=== PATIENT | male | born 1995 | race Caucasian/White ===

== ENCOUNTER 2016-10-29 21:04 | Emergency (ER) | payer OTHER ==
--- NOTE | 2016-10-29 21:48 | ED ---
Psych HPI - General Source: patient Mode of arrival: ambulatory <Brannon Gardner - Last Filed: 10/30/16 01:17> <Clayton Blanchard - Last Filed: 10/30/16 04:42> - General Chief Complaint: Psychiatric Symptoms Stated Complaint: petition Time Seen by Provider: 10/29/16 21:37 - History of Present Illness Initial Comments: Patient is a 21-year-old male presenting with suicidal ideation. Patient states he's been with his boyfriend for the past 6 months and makes him feel depressed. Patient states he currently broke up with his boyfriend. Patient intermittently will try to seek help with a counselor but never follows through with appointments. He is not on medication at this time. Patient states his mom has breast cancer and has immunodeficiency for which she has multiple medications at home for which he would overdose if he had the chance. The patient called 911 for help. Patient denies homicidality or hallucinations. (Brannon Gardner) - Related Data Home Medications Medication Instructions Recorded Confirmed No Known Home Medications [No 10/29/16 10/29/16 Known Home Medications] Allergies Allergy/AdvReac Type Severity Reaction Status Date / Time No Known Allergies Allergy Verified 10/29/16 21:24 Review of Systems ROS Other: All systems not noted in ROS Statement are negative. <Brannon Gardner - Last Filed: 10/30/16 01:17> ROS Other: All systems not noted in ROS Statement are negative. <Clayton Blanchard - Last Filed: 10/30/16 04:42> ROS Statement: Those systems with pertinent positive or pertinent negative responses have been documented in the HPI. Constitutional: No fever and no chills. HENT: No congestion, no rhinorrhea and no sore throat. Eyes: No discharge and no redness. Respiratory: No cough and no shortness of breath. Cardiovascular: No chest pain and no palpitations. Gastrointestinal: No nausea, no vomiting, no abdominal pain and no diarrhea. Genitourinary: No dysuria and no hematuria. Musculoskeletal: No back pain and no arthralgias. Skin: No pallor and no rash. Neurological: No dizziness and No headaches. Psych: Suicidal, not homicidal, not hallucinating (Brannon Gardner) Past Medical History Past Medical History: No Reported History History of Any Multi-Drug Resistant Organisms: None Reported Past Surgical History: No Surgical Hx Reported Past Psychological History: Depression Smoking Status: Never smoker Past Alcohol Use History: None Reported Past Drug Use History: None Reported <Brannon Gardner - Last Filed: 10/30/16 01:17> General Exam Limitations: no limitations <Brannon Gardner - Last Filed: 10/30/16 01:17> <Clayton Blanchard - Last Filed: 10/30/16 04:42> - General Exam Comments Initial Comments: Constitutional: Patient appears well-developed and well-nourished. No distress. Head: Normocephalic and atraumatic. Eyes: Conjunctivae and EOM are normal. Right eye exhibits no discharge. Left eye exhibits no discharge. No scleral icterus. Neck: Normal range of motion. Neck supple. Cardiovascular: Normal rate and regular rhythm. No murmur heard. Pulmonary/Chest: Effort normal and breath sounds normal. No respiratory distress. No wheezes. Abdominal: Soft. No distension. There is no tenderness. There is no rebound and no guarding. Musculoskeletal: Normal range of motion. No edema or tenderness. Neurological: Patient alert and oriented to person, place, and time. Skin: Skin is warm and dry. Not diaphoretic. Psych: Poor eye contact, flat affect. Suicidal but not hallucinating. Not homicidal. Nursing notes and vitals reviewed. (Brannon Gardner) Course <Brannon Gardner - Last Filed: 10/30/16 01:17> <Clayton Blanchard - Last Filed: 10/30/16 04:42> Vital Signs 10/29/16 10/30/16 21:22 03:00 Temperature 98.4 F Pulse Rate 74 70 Respiratory 18 16 Rate Blood Pressure 137/79 122/71 O2 Sat by Pulse 98 99 Oximetry - Reevaluation(s) Reevaluation #1: 10/30/16 00:01 Patient remains resting comfortably in bed. [facility] requesting blood work for placement. (Brannon Gardner) Reevaluation #2: 10/30/16 04:42 Patient medically clear (Clayton Blanchard) Medical Decision Making - Lab Data Result diagrams: 03/11/17 23:50 10/29/16 23:50 <Brannon Gardner - Last Filed: 10/30/16 01:17> - Lab Data Result diagrams: 10/29/16 23:50 10/29/16 23:50 <Clayton Blanchard - Last Filed: 10/30/16 04:42> - Medical Decision Making Patient's a 21-year-old male without prior inpatient psychiatric care or antidepressants presenting with suicidal ideation. Patient states he was overdose on pills. Patient recently broke up with his boyfriend after a stressful relationship. EPS notified and [facility] working to find placement as patient is an [facility] resident. Patient signed out to Dr. Blanchard pending placement. (Brannon Gardner) [facility] ER for evaluation, patient be transferred for inpatient psychiatric evaluation and treatment (Clayton Blanchard) - Lab Data Lab Results 10/29/16 10/29/16 10/29/16 Range/Units 23:50 23:50 23:50 WBC 8.8 (4.0-11.0) k/uL RBC 4.89 (4.30-5.90) m/uL Hgb 14.8 (13.0-17.5) gm/dL Hct 43.7 (39.0-53.0) % MCV 89.4 (80.0-100.0) fL MCH 30.3 (25.0-35.0) pg MCHC 33.9 (31.0-37.0) g/dL RDW 13.1 (11.5-15.5) % Plt Count 234 (150-450) k/uL Neutrophils % 61 % Lymphocytes % 28 % Monocytes % 6 % Eosinophils % 2 % Basophils % 1 % Neutrophils # 5.3 (1.3-7.7) k/uL Lymphocytes # 2.5 (1.0-4.8) k/uL Monocytes # 0.5 (0-1.0) k/uL Eosinophils # 0.2 (0-0.7) k/uL Basophils # 0.1 (0-0.2) k/uL Sodium 145 (137-145) mmol/L Potassium 4.1 (3.5-5.1) mmol/L Chloride 106 (98-107) mmol/L Carbon Dioxide 28 (22-30) mmol/L Anion Gap 11 mmol/L BUN 15 (9-20) mg/dL Creatinine 0.80 (0.66-1.25) mg/dL Est GFR (MDRD) Af Amer >60 (>60 ml/min/1.73 sqM) Est GFR (MDRD) Non-Af >60 (>60 ml/min/1.73 sqM) Glucose 92 (74-99) mg/dL Calcium 9.4 (8.4-10.2) mg/dL Total Bilirubin 0.6 (0.2-1.3) mg/dL AST 14 L (17-59) U/L ALT 37 (21-72) U/L Alkaline Phosphatase 64 (38-126) U/L Total Protein 7.4 (6.3-8.2) g/dL Albumin 4.4 (3.5-5.0) g/dL Urine Color Yellow Urine Appearance Clear (Clear) Urine pH 6.5 (5.0-8.0) Ur Specific [place] 1.031 (1.001-1.035) Urine Protein 1+ H (Negative) Urine Glucose (UA) Negative (Negative) Urine Ketones Negative (Negative) Urine Blood Negative (Negative) Urine Nitrate Negative (Negative) Urine Bilirubin Negative (Negative) Urine Urobilinogen 2.0 (<2.0) mg/dL Ur Leukocyte Esterase Negative (Negative) Urine RBC 2 (0-5) /hpf Urine WBC 1 (0-5) /hpf Amorphous Sediment Rare H (None) /hpf Urine Mucus Few H (None) /hpf Urine Opiates Screen Not Detected (NotDetected) Ur Oxycodone Screen Not Detected (NotDetected) Urine Methadone Screen Not Detected (NotDetected) Ur Propoxyphene Screen Not Detected (NotDetected) Ur Barbiturates Screen Not Detected (NotDetected) U Tricyclic Antidepress Not Detected (NotDetected) Ur Phencyclidine Scrn Not Detected (NotDetected) Ur Amphetamines Screen Not Detected (NotDetected) U Methamphetamines Scrn Not Detected (NotDetected) U Benzodiazepines Scrn Not Detected (NotDetected) Urine Cocaine Screen Not Detected (NotDetected) U Marijuana (THC) Screen Detected H (NotDetected) Disposition <Denhof,Brannon R - Last Filed: 10/30/16 01:17> <Clayton Blanchard - Last Filed: 10/30/16 04:42> Clinical Impression: Suicidal ideation, Mood disorder Disposition: TRANSFER TO PSYCH HOSP/UNIT Condition: Fair Referrals: Nonstaff,Physician [Primary Care Provider] - 1-2 days
[2016-10-30 00:20] LABS: Basophils # (A) 0.1 k/uL (0-0.2); Basophils % (A) 1 %; CH 30.5; CHCM 34.2; Eosinophils # (A) 0.2 k/uL (0-0.7); Eosinophils % (A) 2 %; HCT 43.7 % (39.0-53.0); HDW 2.64; HGB 14.8 gm/dL (13.0-17.5); Luc # (Auto) 0.24; Luc % (Auto) 3; Lymphocytes # (A) 2.5 k/uL (1.0-4.8); Lymphocytes % (A) 28 %; MCH 30.3 pg (25.0-35.0); MCHC 33.9 g/dL (31.0-37.0); MCV 89.4 fL (80.0-100.0); Mean Platelet Volume 8.1; Monocytes # (A) 0.5 k/uL (0-1.0); Monocytes % (A) 6 %; Neutrophils # (A) 5.3 k/uL (1.3-7.7); Neutrophils % (A) 61 %; RBC 4.89 m/uL (4.30-5.90); RDW 13.1 % (11.5-15.5); WBC 8.8 k/uL (4.0-11.0); WBC (Perox) 8.96
[2016-10-30 00:26] LABS: ALT 37 U/L (21-72); AST 14 U/L (17-59); Alkaline Phosphatase 64 U/L (38-126); Anion Gap 11 mmol/L; Blood Urea Nitrogen 15 mg/dL (9-20); Calcium 9.4 mg/dL (8.4-10.2); Carbon Dioxide 28 mmol/L (22-30); Chloride 106 mmol/L (98-107); Glucose 92 mg/dL (74-99); Non-African American GFR(MDRD) >60 (>60 ml/min/1.73 sqM); Potassium 4.1 mmol/L (3.5-5.1); Sodium 145 mmol/L (137-145); Total Bilirubin 0.6 mg/dL (0.2-1.3); Total Protein 7.4 g/dL (6.3-8.2)
[2016-10-30 00:28] LABS: Amorphous Sediment,Urine Rare /hpf; Appearance,Urine Clear (Clear); Bilirubin,Urine Negative (Negative); Glucose,Urine (UA) Negative (Negative); Ketones,Urine Negative (Negative); Leukocyte Esterase,Urine Negative (Negative); Mucus,Urine Few /hpf; Nitrite,Urine Negative (Negative); PH, Urine 6.5 (5.0-8.0); Particle Count 6557; Protein,Urine 1+ (Negative); RBC,Urine 2 /hpf (0-5); Specific Gravity,Urine 1.031 (1.001-1.035); UA Billing (MACRO vs. MICRO) MICRO; WBC,Urine 1 /hpf (0-5)
[2016-10-30 13:05] VITALS: PULSE 78
--- NOTE | 2016-10-30 13:58 | ED ---
Medical Decision Making - Medical Decision Making The patient rested comfortably in emergency department all morning and early afternoon he will be transferred to[facility]. - Lab Data Result diagrams: 10/29/16 23:50 10/29/16 23:50 Lab Results 10/29/16 10/29/16 10/29/16 Range/Units 23:50 23:50 23:50 WBC 8.8 (4.0-11.0) k/uL RBC 4.89 (4.30-5.90) m/uL Hgb 14.8 (13.0-17.5) gm/dL Hct 43.7 (39.0-53.0) % MCV 89.4 (80.0-100.0) fL MCH 30.3 (25.0-35.0) pg MCHC 33.9 (31.0-37.0) g/dL RDW 13.1 (11.5-15.5) % Plt Count 234 (150-450) k/uL Neutrophils % 61 % Lymphocytes % 28 % Monocytes % 6 % Eosinophils % 2 % Basophils % 1 % Neutrophils # 5.3 (1.3-7.7) k/uL Lymphocytes # 2.5 (1.0-4.8) k/uL Monocytes # 0.5 (0-1.0) k/uL Eosinophils # 0.2 (0-0.7) k/uL Basophils # 0.1 (0-0.2) k/uL Sodium 145 (137-145) mmol/L Potassium 4.1 (3.5-5.1) mmol/L Chloride 106 (98-107) mmol/L Carbon Dioxide 28 (22-30) mmol/L Anion Gap 11 mmol/L BUN 15 (9-20) mg/dL Creatinine 0.80 (0.66-1.25) mg/dL Est GFR (MDRD) Af Amer >60 (>60 ml/min/1.73 sqM) Est GFR (MDRD) Non-Af >60 (>60 ml/min/1.73 sqM) Glucose 92 (74-99) mg/dL Calcium 9.4 (8.4-10.2) mg/dL Total Bilirubin 0.6 (0.2-1.3) mg/dL AST 14 L (17-59) U/L ALT 37 (21-72) U/L Alkaline Phosphatase 64 (38-126) U/L Total Protein 7.4 (6.3-8.2) g/dL Albumin 4.4 (3.5-5.0) g/dL Urine Color Yellow Urine Appearance Clear (Clear) Urine pH 6.5 (5.0-8.0) Ur Specific [place] 1.031 (1.001-1.035) Urine Protein 1+ H (Negative) Urine Glucose (UA) Negative (Negative) Urine Ketones Negative (Negative) Urine Blood Negative (Negative) Urine Nitrate Negative (Negative) Urine Bilirubin Negative (Negative) Urine Urobilinogen 2.0 (<2.0) mg/dL Ur Leukocyte Esterase Negative (Negative) Urine RBC 2 (0-5) /hpf Urine WBC 1 (0-5) /hpf Amorphous Sediment Rare H (None) /hpf Urine Mucus Few H (None) /hpf Urine Opiates Screen Not Detected (NotDetected) Ur Oxycodone Screen Not Detected (NotDetected) Urine Methadone Screen Not Detected (NotDetected) Ur Propoxyphene Screen Not Detected (NotDetected) Ur Barbiturates Screen Not Detected (NotDetected) U Tricyclic Antidepress Not Detected (NotDetected) Ur Phencyclidine Scrn Not Detected (NotDetected) Ur Amphetamines Screen Not Detected (NotDetected) U Methamphetamines Scrn Not Detected (NotDetected) U Benzodiazepines Scrn Not Detected (NotDetected) Urine Cocaine Screen Not Detected (NotDetected) U Marijuana (THC) Screen Detected H (NotDetected) Disposition Clinical Impression: Suicidal ideation, Mood disorder Disposition: TRANSFER TO PSYCH HOSP/UNIT Condition: Fair Referrals: Nonstaff,Physician [Primary Care Provider] - 1-2 days
[2016-10-30 14:24] VITALS: BP 119/67; RESP 16; TEMP 98.1
== END 2016-10-30 14:25 ==
LOC: EC 21:04
DX: R45.851 Suicidal ideations (principal); F39 Unspecified mood [affective] disorder
CPT/HCPCS: 36415; 80053; 80306; 81001; 82075; 85025; 99285

== ENCOUNTER 2017-04-25 14:33 | Emergency (ER) | payer OTHER ==
[2017-04-25 14:37] VITALS: BP 120/7; PULSE 85; RESP 20; TEMP 97.5
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
== END 2017-04-25 15:20 | disposition home or self-care (01) ==
LOC: EC 14:33
DX: T76.21XA Adult sexual abuse, suspected, initial encounter (principal); Z79.899 Other long term (current) drug therapy
CPT/HCPCS: 36415; 87390; 99283

== ENCOUNTER 2017-05-30 03:01 | Emergency (ER) | payer OTHER ==
[2017-05-30 03:10] VITALS: RESP 16; TEMP 97.5
[2017-05-30] MEDS ORDERED: LORazepam 2 MG/ML INJ IM STA (03:19)
--- NOTE | 2017-05-30 03:58 | ED ---
Anxiety HPI - General Chief Complaint: Anxiety Stated Complaint: SOB,chest tightness Time Seen by Provider: 05/30/17 03:19 Source: patient, RN notes reviewed, old records reviewed Mode of arrival: ambulatory - History of Present Illness Initial Comments: 21 year old male presents with CC of severe anxiety, chest pain, and nausea, and feelts short of breath. Patient has had a hisotry of anciety, and was on atvban 1 mg TID for the past year. Patient reports that last week he ran out of his medication, nad patient missed appointment with psychiatrist that prescribes it. Patent denies any abdominal pain, or diarrhea, denies any heasache, cision changes, back pain. - Related Data Home Medications: Home Medications Medication Instructions Recorded Confirmed LORazepam [Ativan] 1 mg PO TID 04/25/17 04/25/17 Previous Rx's Medication Instructions Recorded Emtricitabine/Tenofovir (Tdf) 1 tab PO DAILY #28 tab 04/25/17 [Truvada 200 mg-300 mg Tablet] Raltegravir Potassium [Isentress] 400 mg PO Q12H #56 tab 04/25/17 LORazepam [Ativan] 0.5 mg PO BID #10 tab 05/30/17 Ondansetron Odt [Zofran Odt] 4 mg PO Q8HR PRN #12 tab 05/30/17 Allergies/Adverse Reactions: Allergies Allergy/AdvReac Type Severity Reaction Status Date / Time No Known Allergies Allergy Verified 05/30/17 03:09 Review of Systems ROS Statement: Those systems with pertinent positive or pertinent negative responses have been documented in the HPI. ROS Other: All systems not noted in ROS Statement are negative. Past Medical History Past Medical History: No Reported History History of Any Multi-Drug Resistant Organisms: None Reported Past Surgical History: No Surgical Hx Reported Past Psychological History: Depression Smoking Status: Never smoker Past Alcohol Use History: None Reported Past Drug Use History: None Reported General Exam - General Exam Comments Initial Comments: Anxious appearing 21 year old male,no distress. Limitations: no limitations General appearance: alert, in no apparent distress Head exam: Present: atraumatic, normocephalic, normal inspection Eye exam: Present: normal appearance, PERRL, EOMI. Absent: scleral icterus, conjunctival injection, periorbital swelling ENT exam: Present: normal exam, mucous membranes moist Neck exam: Present: normal inspection. Absent: tenderness, meningismus, lymphadenopathy Respiratory exam: Present: normal lung sounds bilaterally. Absent: respiratory distress, wheezes, rales, rhonchi, stridor Cardiovascular Exam: Present: regular rate, normal rhythm, normal heart sounds. Absent: systolic murmur, diastolic murmur, rubs, gallop, clicks GI/Abdominal exam: Present: soft, normal bowel sounds. Absent: distended, tenderness, guarding, rebound, rigid Neurological exam: Present: alert, oriented X3, CN II-XII intact Psychiatric exam: Present: normal affect, anxious ( Paitent reprts that he is very anxious, and is having panic attach symptoms. ). Absent: normal mood Course Vital Signs 05/30/17 05/30/17 03:07 04:21 Temperature 97.5 F L Pulse Rate 77 74 Respiratory 16 16 Rate Blood Pressure 123/75 117/67 O2 Sat by Pulse 100 97 Oximetry Medical Decision Making - Medical Decision Making 21 year old male with CC of chest pain and severe anxiety. Patient has been on ativan was recently stopped and cannot get into his PCP to refill it. patinet has been out for one week. Patient also reported nausea. Patient appears to be having a panic attack, as EKG is wihint normal limits, and patient lungs are clear to auscultation. Patient discharged after 2 iM ativan, and written for low dose ativan. Patient denies suicidal thougths. Patient is with father and patient and father understand streatment plan and will comply, return paramters discussed. 05/30/17 03:57 EKG shows sinus rhythm. Ventricular rate of 72 beats were minute. NC interval 134 ms. QRS ration 96 ms. QT QTc is 3 01/[birth year]/1936 milliseconds. No evidence this elevation or T-wave inversion. No evidence of atrial or ventricular arrhythmias. - Radiology Data Radiology results: report reviewed Disposition Clinical Impression: Panic attack Disposition: HOME SELF-CARE Condition: Good Instructions: Generalized Anxiety Disorder (ED) Additional Instructions: Follow up with PCP and Psychiatrist. Patient should continue antidepressant medication. Return to ED if any alarming signs or symptoms occur. Only take anxiety medication as directed during acute panic attack. Prescriptions: LORazepam [Ativan] 0.5 mg PO BID #10 tab Ondansetron Odt [Zofran Odt] 4 mg PO Q8HR PRN #12 tab PRN Reason: Nausea Referrals: Nonstaff,Physician [Primary Care Provider] - 1-2 days Aide Rodriguez MD [STAFF PHYSICIAN] - 1-2 days Time of Disposition: 03:58
[2017-05-30] MEDS ORDERED: ONDANSETRON 4 MG ODT STARTER PACK 2 TAB BTL PO STA (04:07)
[2017-05-30 04:22] VITALS: BP 117/67; PULSE 74
== END 2017-05-30 04:22 | disposition home or self-care (01) ==
LOC: EC 03:01
DX: F41.0 Panic disorder [episodic paroxysmal anxiety] (principal); R06.02 Shortness of breath; R07.89 Other chest pain; F32.9 Major depressive disorder, single episode, unspecified; Z79.899 Other long term (current) drug therapy
CPT/HCPCS: 99284 ×2; 96372 ×2; 93005; J2060; S0119